=== PATIENT | female | born 1960 | race Caucasian/White ===

== ENCOUNTER 2018-10-28 14:35 | Emergency (ER) | payer OTHER ==
[~2018-10-28] VITALS: Ht 157.5 cm; Wt 89.8 kg
[2018-10-28 14:46] VITALS: BP 112/49
[2018-10-28] MEDS ORDERED: ORPHENADRINE CITRATE 60 MG/2 ML VIAL. ONE (15:14)
[2018-10-28] MEDS ORDERED: IV NORMAL SALINE 1,000ML 1,000 ML IV ONE (15:15)
[2018-10-28] MEDS ORDERED: HYDROmorphone PF 1 MG/ML DISP.SYRIN IV ONE (15:15)
--- NOTE | 2018-10-28 15:16 | PHYS DOC ---
Past History Past Medical History: COPD, Diabetes, Other Past Surgical History: Other Alcohol Use: None Drug Use: None Adult General Chief Complaint Chief Complaint: BACK PAIN OR INJURY HPI HPI 58-year-old female presents with low back pain. The patient states it is right at the base of her spine. The pain is bilateral and radiates down both legs. The patient has been seen for this by her PCP. The pain today is worse than it has been. She is having difficulty getting a comfortable position. She denies loss of bowel or bladder. She does not have saddle anesthesia. She has had a previous fusion in this area. She denies trauma or falls. She denies fever or chills. Review of Systems Review of Systems Constitutional: Denies fever or chills [] Eyes: Denies change in visual acuity, redness, or eye pain [] HENT: Denies nasal congestion or sore throat [] Respiratory: Denies cough or shortness of breath [] Cardiovascular: No additional information not addressed in HPI [] GI: Denies abdominal pain, nausea, vomiting, bloody stools or diarrhea [] : Denies dysuria or hematuria [] Musculoskeletal: Back pain [] Integument: Denies rash or skin lesions [] Neurologic: Denies headache, focal weakness or sensory changes [] Endocrine: Denies polyuria or polydipsia [] All other systems were reviewed and found to be within normal limits, except as documented in this note. Current Medications Current Medications Current Medications Medications (Trade) Dose Ordered Sig/Melina Start Time Stop Time Status Last Admin Dose Admin Hydromorphone HCl (Dilaudid) 1 mg 1X ONCE 10/28/18 15:15 10/28/18 15:16 Methylprednisolone Sodium Succinate (SOLU-Medrol 125MG VIAL) 125 mg 1X ONCE 10/28/18 15:15 10/28/18 15:16 UNV Ondansetron HCl (Zofran) 4 mg 1X ONCE 10/28/18 15:30 10/28/18 15:31 Sodium Chloride 1,000 ml @ 1,000 mls/hr 1X ONCE 10/28/18 15:15 10/28/18 16:14 Allergies Allergies Allergies Coded Allergies Type Severity Reaction Last Updated Verified tetracycline Allergy Unknown 10/28/18 Yes Physical Exam Physical Exam Constitutional: Well developed, well nourished, moderate acute distress, non- toxic appearance. [] HENT: Normocephalic, atraumatic, bilateral external ears normal, oropharynx moist, no oral exudates, nose normal. [] Eyes: PERRLA, EOMI, conjunctiva normal, no discharge. [] Neck: Normal range of motion, no tenderness, supple, no stridor. [] Cardiovascular:Heart rate regular rhythm, no murmur [] Lungs & Thorax: Bilateral breath sounds clear to auscultation [] Abdomen: Bowel sounds normal, soft, no tenderness, no masses, no pulsatile masses. [] Skin: Warm, dry, no erythema, no rash. [] Back: Tenderness in the L5-S1 area[] Extremities: No tenderness, no cyanosis, no clubbing, ROM intact, no edema. [] Neurologic: Alert and oriented X 3, normal motor function, normal sensory function, no focal deficits noted. [] Psychologic: Affect normal, judgement normal, mood anxious. [] Current Patient Data Vital Signs Vital Signs Date Time Temp Pulse Resp B/P (MAP) Pulse Ox O2 Delivery O2 Flow Rate FiO2 10/28/18 14:46 98.0 109 18 96 Room Air EKG EKG [] Radiology/Procedures Radiology/Procedures [] Impressions: LUMBAR SPINE 2-3V History: Back pain Comparison: None. Findings: 3 views of the lumbar spine are submitted. There is grade 1 anterior spondylolisthesis L5-S1. Lumbar vertebral body stature is adequate. There is fairly severe degenerative disc disease at L5-S1. There is facet degenerative change greater inferiorly of the lumbar spine. It is difficult to exclude L5 spondylolysis. There is small calcification inferior to the right renal shadow although somewhat more laterally located than expected for ureter. There has been cholecystectomy. There are phleboliths in the bilateral pelvis. There is multilevel spondylosis greatest L2-3, L3-4, L5-S1. Impression: 1. There is grade 1 anterior spondylolisthesis L5-S1 at which there is facet degenerative change although L5 spondylolysis not excluded. There is fairly severe degenerative disc disease L5-S1. 2. There is a small calcification inferior to the right right kidney, somewhat more laterally located than expected for ureter although ureteral calculus not excluded. Electronically signed by: Jose oCoper MD (10/28/2018 3:40 PM) [id number] DICTATED AND SIGNED BY: JOSE COOPER MD DATE: 10/28/18 1540 CC: LAILA CADET DO; [employer] [employer] ~ Course & Med Decision Making Course & Med Decision Making Pertinent Labs and Imaging studies reviewed. (See chart for details) The patient has degenerative changes in her lumbar spine, however there are no acute findings. See official read for more details. I have given the patient 1 mg of Dilaudid, 60 mg of Norflex, 4 mg Zofran, 125 mg Solu-Medrol all IV. The patient's pain seems out of portion to exam. She was sent here by her PCP. She has been seen for this several times. She does not see pain management. I will discharge her on 5 days of prednisone to see if this helps. We'll also give her prescription for Flexeril. She is stable for discharge at this time. [] Dragon Disclaimer Dragon Disclaimer This electronic medical record was generated, in whole or in part, using a voice recognition dictation system. Departure Departure: Impression: Primary Impression: Lumbar pain Disposition: 01 HOME, SELF-CARE Condition: STABLE Referrals: [facility] [employer] (PCP) Patient Instructions: Back Pain, Adult, [id number] Scripts Cyclobenzaprine Hcl (CYCLOBENZAPRINE HCL) 10 Mg Tablet 1 TAB PO TID PRN for MUSCLE SPASMS, #30 TAB Prov: LAILA CADET DO 10/28/18 Prednisone (PREDNISONE) 10 Mg Tablet 50 MG PO DAILY for radiculopathy for 5 Days, #25 TAB Prov: LAILA CADET DO 10/28/18 LAILA CADET DO October 28, 2018 15:16
[2018-10-28 15:26] LABS: BASO # 0.1 x10^3/uL (0.0-0.2); BASO % 1 % (0-3); EOS # 0.2 x10^3/uL (0.0-0.7); EOS % 2 % (0-3); HEMATOCRIT 33.2 % (36.0-47.0); HEMOGLOBIN 11.2 g/dL (12.0-15.5); LYMPH # 2.1 x10^3/uL (1.0-4.8); LYMPH % 17 % (24-48); MEAN CORPUSCULAR HEMOGLOBIN 30 pg (25-35); MEAN CORPUSCULAR HGB CONC 34 g/dL (31-37); MEAN CORPUSCULAR VOLUME 87 fL (79-100); MONO # 0.8 x10^3/uL (0.0-1.1); MONO % 6 % (0-9); NEUT # 9.3 x10^3uL (1.8-7.7); NEUT % 75 % (31-73); PLATELET COUNT 288 x10^3/uL (140-400); RED BLOOD COUNT 3.81 x10^6/uL (3.50-5.40); RED CELL DISTRIBUTION WIDTH 13.4 % (11.5-14.5); WHITE BLOOD COUNT 12.4 x10^3/uL (4.0-11.0)
[2018-10-28] MEDS ORDERED: ONDANSETRON PF 4 MG/2 ML VIAL. IV ONE (15:30)
[2018-10-28] MEDS ORDERED: methylPREDNISolone SOD SUCC PF 125 MG/2 ML VIAL. IV ONE (15:30)
[2018-10-28] MEDS ORDERED: ORPHENADRINE CITRATE 60 MG/2 ML VIAL. IV ONE (15:30)
[2018-10-28 15:32] LABS: AMPHETAMINE/METHAMPHETAMINE NEG (NEG); BARBITURATES NEG (NEG); BENZODIAZEPINES NEG (NEG); CANNABINOIDS NEG (NEG); COCAINE NEG (NEG); METHADONE NEG (NEG); OPIATES POS (NEG); PHENCYCLIDINE NEG (NEG)
[2018-10-28 15:34] LABS: BILIRUBIN,URINE NEG (NEG); CLARITY,URINE CLEAR; COLOR,URINE YELLOW; GLUCOSE,URINE NEG (NEG)
[2018-10-28 15:35] LABS: BACTERIA,URINE 0 /HPF (0-FEW); NITRITE,URINE NEG (NEG); RBC,URINE 0 /HPF (0-2); SQUAMOUS EPITHELIAL CELL,UR OCC /LPF; UROBILINOGEN,URINE 0.2 mg/dL (0.2 mg/dL); WBC,URINE OCC /HPF (0-4)
[2018-10-28 15:40] LABS: ALBUMIN 3.5 g/dL (3.4-5.0); ALBUMIN/GLOBULIN RATIO 0.8 (1.0-1.7); CALCIUM 10.4 mg/dL (8.5-10.1); CREATININE 1.2 mg/dL (0.6-1.0); GFR 46.1; POTASSIUM 4.3 mmol/L (3.5-5.1); TOTAL BILIRUBIN 0.3 mg/dL (0.2-1.0)
--- NOTE | 2018-10-28 15:43 | RAD ---
LUMBAR SPINE 2-3V History: Back pain Comparison: None. Findings: 3 views of the lumbar spine are submitted. There is grade 1 anterior spondylolisthesis L5-S1. Lumbar vertebral body stature is adequate. There is fairly severe degenerative disc disease at L5-S1. There is facet degenerative change greater inferiorly of the lumbar spine. It is difficult to exclude L5 spondylolysis. There is small calcification inferior to the right renal shadow although somewhat more laterally located than expected for ureter. There has been cholecystectomy. There are phleboliths in the bilateral pelvis. There is multilevel spondylosis greatest L2-3, L3-4, L5-S1. Impression: 1. There is grade 1 anterior spondylolisthesis L5-S1 at which there is facet degenerative change although L5 spondylolysis not excluded. There is fairly severe degenerative disc disease L5-S1. 2. There is a small calcification inferior to the right right kidney, somewhat more laterally located than expected for ureter although ureteral calculus not excluded. Electronically signed by: Kaiden Claire MD (10/28/2018 3:40 PM) [id number]
[2018-10-28] MEDS ORDERED: PRED-220 PO (16:02)
[2018-10-28] MEDS ORDERED: CYCL-331 PO (16:11)
== END 2018-10-28 16:28 | disposition home or self-care (01) ==
LOC: ER 14:42
DX: M54.5 Low back pain (principal); J44.9 Chronic obstructive pulmonary disease, unspecified; E11.9 Type 2 diabetes mellitus without complications; Z88.1 Allergy status to other antibiotic agents
CPT/HCPCS: 36415; 72100; 80053; 80307; 81001; 85025; 96374; 96375; 99285; J1170; J2360; J2405; J2930; J7030